=== PATIENT | female | born 1975 | race Caucasian/White ===

== ENCOUNTER 2020-08-26 18:10 | Emergency (ER) | payer OTHER ==
[2020-08-26 19:22] LABS: HEMOGLOBIN 12.4 gm/dl (12.3-15.3); RED BLOOD COUNT 4.4 M/UL (4.00-5.10)
[2020-08-26] MEDS ORDERED: NAPROSYN500 MG PO (22:18)
[2020-08-26] MEDS ORDERED: CEPHALEXIN500 M1 PO (22:18)
== END 2020-08-26 23:00 | disposition home or self-care (01) ==
LOC: ER1 18:10
PROVIDERS: Physician Assistant Medical
DX: N39.0 Urinary tract infection, site not specified (principal); N93.9 Abnormal uterine and vaginal bleeding, unspecified; J45.909 Unspecified asthma, uncomplicated; F17.210 Nicotine dependence, cigarettes, uncomplicated; Z88.0 Allergy status to penicillin; Z79.899 Other long term (current) drug therapy
CPT/HCPCS: 80053; 81001; 84703; 85025; 96374; 99284; J1885; Q9967